=== PATIENT | female | born 1995 | race Caucasian/White ===

== ENCOUNTER 2024-09-30 08:03 | Emergency (ER) | payer BC ==
[~2024-09-30] VITALS: Ht 170.1 cm; Wt 70.3 kg
[2024-09-30] MEDS ORDERED: PRENATA CHEWAB1 EACH PO (08:24)
[2024-09-30] MEDS ORDERED: SODIUM CHLORIDE 0.9% 1,000 ML IV ONE (08:30)
[2024-09-30] MEDS ORDERED: Metoclopramide Hydrochloride 10 MG/2 ML VIAL IV ONE (08:30)
[2024-09-30] MEDS ORDERED: diphenhydrAMINE hydrochloride 50 MG/ML VIAL IV ONE (08:30)
[2024-09-30] MEDS ORDERED: FAMOTIDINE 50 ML IV ONE (08:30)
[2024-09-30 08:49] LABS: BASO % 0.3 % (0.0-1.0); EOS # 0.1 10*3/uL (0.0-0.4); HEMATOCRIT 41.4 % (37.0-47.0); MEAN CORPUSCULAR HGB 29.9 pg (27.0-31.0); MEAN CORPUSCULAR HGB CONC 33.6 g/dl (33.0-37.0); MEAN PLATELET VOLUME 9.1 fl (9.6-12.3); MONO # 0.2 10*3/uL (0.1-1.0); NEUT # 5.1 10*3/uL (2.3-7.9); NEUT % 85.2 % (47.0-73.0); PLATELET COUNT AUTOMATED 260 10*3/uL (130-400); RED BLOOD COUNT 4.65 10*6/uL (4.10-5.10)
[2024-09-30 09:09] LABS: BUN 6 mg/dl (9-23); CHLORIDE 105 mmol/L (98-107); POTASSIUM 3.6 mmol/L (3.4-5.1)
[2024-09-30] MEDS ORDERED: REGLAN10 M1 PO (09:25)
== END 2024-09-30 09:51 | disposition home or self-care (01) ==
LOC: ED 08:03
PROVIDERS: Emergency Medicine
DX: O21.9 Vomiting of pregnancy, unspecified (principal); Z3A.14 14 weeks gestation of pregnancy; Z88.2 Allergy status to sulfonamides; Z88.8 Allergy status to other drugs, medicaments and biological substances; R19.7 Diarrhea, unspecified